=== PATIENT | male | born 1975 | race Two or more races ===

== ENCOUNTER 2023-11-21 08:08 | Outpatient (CLI) | payer MEDICAID ==
[~2023-11-21] VITALS: Ht 172.7 cm; Wt 95.3 kg
[2023-11-21] MEDS: albuterol 2.5 MG/3 ML nebule NEB ONE (08:42)
[2023-11-21 08:44] VITALS: PULSE 72; RESP 15; O2SAT 96
[2023-11-21 08:57] VITALS: PULSE 91; RESP 15
== END 2023-11-21 23:59 | disposition home or self-care (01) ==
LOC: RT 08:08
PROVIDERS: ATTEND Nurse Practitioner Family
DX: R06.00 Dyspnea, unspecified (principal)
CPT/HCPCS: 94060; 94760